=== PATIENT | male | born 1980 | race Caucasian/White ===

== ENCOUNTER → 2021-01-16 13:36 | Outpatient (CLI) | payer OTHER, SELFPAY ==
[2021-01-16] MEDS: COVID-19 VACC #1, MRNA(MOD) 100 MCG/0.5 ML VIAL IM (13:45)
== END ==
PROVIDERS: Visit Provider Internal Medicine
DX: Z23 Encounter for immunization (principal)
CPT/HCPCS: 0011A; 91301

== ENCOUNTER → 2021-02-13 09:48 | Outpatient (CLI) | payer OTHER, SELFPAY ==
[2021-02-13] MEDS: COVID-19 VACC #2, MRNA(MOD) 100 MCG/0.5 ML VIAL IM (09:53)
== END ==
PROVIDERS: Visit Provider Internal Medicine
DX: Z23 Encounter for immunization (principal)
CPT/HCPCS: 0012A; 91301

== ENCOUNTER → 2021-06-03 13:39 | Outpatient (CLI) | payer OTHER, SELFPAY ==
[2021-06-03 15:50] LABS: COVID19 -Nasal RAPID Negative (Negative)
== END ==
PROVIDERS: Visit Provider Nurse Practitioner
DX: Z20.822 Contact with and (suspected) exposure to COVID-19 (principal); R52 Pain, unspecified
CPT/HCPCS: 87635

== ENCOUNTER → 2024-07-20 09:21 | Outpatient (CLI) | payer OTHER, SELFPAY ==
[2024-07-20 10:57] LABS: Hematocrit 44.6 % (41-53); Hemoglobin 15.4 g/dL (13.5-17.5); Mean Corpuscular HGB Conc 34.4 % (30-36); Mean Corpuscular Hemoglobin 30.5 PG (26-34); Mean Corpuscular Volume 88.5 fL (80-100); Platelet Count 206 X10^3/uL (150-400); Red Blood Cell Count 5.04 X10^6/uL (4.5-5.9); Red Cell Distribution Width 13.5 % (11.6-14.8); White Blood Cell Count 7.5 X10^3/uL (4.5-11.0)
[2024-07-20 11:12] LABS: Alanine Aminotransferase 12 IU/L (<50); Albumin 4.7 g/dL (3.5-5.0); Albumin Globulin Ratio 1.9 (1.0-2.8); Alkaline Phosphatase 59 U/L (38-126); Aspartate Aminotransferase 22 IU/L (17-59); BUN Creatinine Ratio 14.7 (6-22); Bilirubin Total 0.9 mg/dL (0.2-1.3); Blood Urea Nitrogen 15 mg/dL (9-20); Calcium 9.6 mg/dL (8.4-10.2); Carbon Dioxide 27 mmol/L (22-32); Chloride 103 mmol/L (98-107); Cholesterol 209 mg/dL (140-199); Estimated Glomerular Filt Rate > 60 mL/min (>60); Globulin 2.5 g/dL (1.7-4.1); Glucose 91 mg/dL (70-100); HDL Cholesterol 54 mg/dL (40-60); HEMOLYSIS < 15 (0-50); LDL Cholesterol Calculated 142 mg/dL (<100); Potassium 4.5 mmol/L (3.4-5.1); Sodium 136 mmol/L (137-145); Total Protein 7.2 g/dL (6.3-8.2); Triglycerides 63 mg/dL (35-150)
[2024-07-20 11:20] LABS: Neutrophils Absolute Manual 3900 /uL (3000-5900); RBC Morphology Normal Morphology; Total Cells Counted 100
[2024-07-20 11:44] LABS: Prostate Specific Antigen 0.416 ng/mL (0.10-4.00)
== END ==
PROVIDERS: PCP Student in an Organized Health Care Education/Training Program; Referring Provider Student in an Organized Health Care Education/Training Program; Visit Provider Student in an Organized Health Care Education/Training Program
DX: R53.83 Other fatigue (principal); Z12.5 Encounter for screening for malignant neoplasm of prostate; R35.1 Nocturia; Z83.42 Family history of familial hypercholesterolemia
CPT/HCPCS: 36415; 80053; 80061; 84153; 85025

== ENCOUNTER 2024-08-30 13:40 | Day surgery (SDC) | payer OTHER, SELFPAY ==
--- NOTE | 2024-08-30 | PATH_ITS ---
[facility] Accession Number: [id number] No. of containers..01 Tissue . 01 Material submitted: . colon - DESCENDING COLON POLYP . 01 Diagnosis: DESCENDING COLON POLYP: Tubular adenoma. STO 09/03/2024 1432 Local . 01 Electronically signed: . Demarco Weber MD, Pathologist NPI- [id number] . 01 Gross description: . Received in formalin, labeled with two patient identifiers and designated descending colon polyp, and consists of a 0.5 x 0.3 x 0.1 cm, ely-brown, flattened tissue which is entirely submitted in cassette A1. ([id number]) /FRR 09/03/2024 1432 Local . 01 Pathologist provided ICD-10: D12.4 . 01 CPT . 090329 Specimen Comment: A courtesy copy of this report has been sent to [phone] Performed at: [address] [facility] [address], [place], [place] [id number] MD Demarco Weber MD Phone: [phone]
[2024-08-30 14:17] VITALS: BP 147/85; PULSE 106; RESP 18; TEMP 36.4; O2SAT 99
--- NOTE | 2024-08-30 14:22 | PM.HP.1 ---
History of Present Illness History of Present Illness Date Patient Seen: 08/30/24 Time Patient Seen: 14:22 Chief complaint: Colonoscopy Narrative: Keagan is a 44-year-old man here for colonoscopy. He has never had one before. No family history of colon cancer. [facility] Medical History (Updated 08/30/24 @ 14:23 by Fer Arguello MD) Plantar warts Eczema Chicken pox Family history of melanoma Nocturia Anxiety Family History (Updated 05/10/24 @ 20:18 by Michelle Moody) Father History of heart disease Hyperlipidemia Mother Cancer History of heart disease Hyperlipidemia Melanoma Social History Smoking Status: Never smoker Meds Home Medications and Allergies Home Medications Medication Instructions Recorded Confirmed Type sertraline 100 mg tablet (Zoloft) 100 mg PO DAILY #90 tabs 04/18/24 08/30/24 Rx sodium,potassium,mag sulfates 17.5 See Rx Instructions PO .COMPLEX 07/23/24 Rx gram-3.13 gram-1.6 gram oral soln #354 mL (Suprep Bowel Prep Kit) Allergies Allergy/AdvReac Type Severity Reaction Status Date / Time No Known Drug Allergies Allergy Verified 08/30/24 14:10 Exam Vital Signs (past 8 hours): - 08/30/24 14:17 Temperature 97.6 F Pulse Rate 106 H Respiratory Rate 18 Blood Pressure 147/85 H Pulse Oximetry 99 Oxygen Delivery Method Room Air Oxygen Delivery Method Room Air Const General: healthy appearing Assessment & Plan Assessment and plan (1) Colon cancer screening: Status: Acute Plan Colonoscopy Time-Based Coding :: [TOTAL MINUTES] spent with patient and on the chart (including review of chart, obtaining history, exam, reviewing outside data, placing orders, documenting exam and treatment plan, and counseling patient) on [DATE].
--- NOTE | 2024-08-30 15:36 | PM.OP.COLON ---
Operative Date/Time/Diagnoses Date of procedure: 08/30/24 Time of procedure: 15:36 Pre-op diagnosis: Colon cancer screening Post-op diagnosis: same Procedure & Clinicians Study performed: Colonoscopy Surgeon: Fer Arguello Procedure Notes Procedure in detail: Surgeon: Fer Arguello MD Anesthesia: Puja Nicholas MD Procedure: The patient was brought to the endoscopy suite, placed in left lateral decubitus position. The patient was connected to monitoring devices. A time-out was performed. Sedation was administered. Once the patient was adequately sedated, a digital rectal exam was performed and was normal. The scope was then inserted and advanced to the cecum where the appendiceal orifice was identified and photographed. The scope was then slowly withdrawn over greater than 6 minutes. The mucosa was thoroughly inspected. There was a 5 mm polyp in the descending colon removed with a cold snare. The scope was retroflexed in the rectum. No other abnormalities were identified. The scope was straightened and removed. The patient was awakened and brought to recovery. Scope withdrawal time: 8 minute Sedation time: 20 minutes EBL: 5 mL Findings: 5 mm descending colon polyp Post-procedure Disposition: PACU
[2024-08-30 15:38] VITALS: BP 101/72; PULSE 81; RESP 14; TEMP 36.8; O2SAT 95
[2024-08-30 15:41] VITALS: BP 113/77; PULSE 84; RESP 13; O2SAT 96
[2024-08-30 15:45] VITALS: BP 114/83; PULSE 83; RESP 16; TEMP 37; O2SAT 95
== END 2024-08-30 15:57 | disposition home or self-care (01) ==
PROVIDERS: PCP Student in an Organized Health Care Education/Training Program; Referring Provider Surgery; Visit Provider Surgery
PROC: 0DJD8ZZ Inspection of Lower Intestinal Tract, Via Natural or Artificial Opening Endoscopic (ICD-10-PCS; CPT 45378; principal; 2024-08-30 14:45)
DX: Z12.11 Encounter for screening for malignant neoplasm of colon (principal); D12.4 Benign neoplasm of descending colon
CPT/HCPCS: 45385; J2704